=== PATIENT | female | born 1970 | race Caucasian/White ===

== ENCOUNTER 2019-07-19 19:01 | Emergency (ER) | payer MEDICAID ==
[~2019-07-19] VITALS: Ht 170.2 cm; Wt 145.5 kg
[~2019-07-19 19:01] MED LIST: CLIN-96 PO; CLOT15CR73 TP; CYCL-1 PO; IBUP-1984 PO; METF500T PO; [UNRECOGNIZED DRUG - OTHER]
[2019-07-19 19:05] VITALS: BP 159/102
== END 2019-07-19 19:41 | disposition home or self-care (01) ==
LOC: ER 19:02
DX: Q66.89 Other specified congenital deformities of feet (principal); R62.50 Unspecified lack of expected normal physiological development in childhood; F31.9 Bipolar disorder, unspecified; Z60.2 Problems related to living alone; Z59.0 Homelessness; Z79.899 Other long term (current) drug therapy
CPT/HCPCS: 99281

== ENCOUNTER 2020-01-27 17:01 | Emergency (ER) | payer MEDICAID ==
[~2020-01-27] VITALS: Ht 167.6 cm; Wt 134.1 kg
[~2020-01-27 17:01] MED LIST changes: -CLIN-96 PO; +CLIN-97 PO
[2020-01-27] MEDS ORDERED: ketorolac tromethamine 15mg/ml inj. IM ONE (18:05)
[2020-01-27 18:36] LABS: BASOPHILS # (AUTO) 0.1 X10'3 (0-0.2); BASOPHILS % (AUTO) 0.9 % (0-1); EOSINOPHILS # (AUTO) 0.5 X10'3 (0-0.9); EOSINOPHILS % (AUTO) 3.3 % (0-6); HEMATOCRIT 44.7 % (35.0-45.0); HEMOGLOBIN 14.7 g/dl (12.0-16.0); LYMPHOCYTES # (AUTO) 2.8 X10'3 (1.1-4.8); LYMPHOCYTES % (AUTO) 20.1 % (21-51); MEAN CORPUSCULAR HEMOGLOBIN 28.9 PG (27.0-31.0); MEAN CORPUSCULAR HGB CONC 32.8 g/dL (33.0-36.5); MEAN CORPUSCULAR VOLUME 88.2 FL (78-98); MEAN PLATELET VOLUME 8.1 FL (7.4-10.4); MONOCYTES # (AUTO) 1.3 X10'3 (0-0.9); MONOCYTES % (AUTO) 9.1 % (2-12); NEUTROPHILS # (AUTO) 9.4 X10'3 (1.8-7.7); NEUTROPHILS % (AUTO) 66.6 % (42-75); PLATELET COUNT 253 X10'3 (140-440); RED BLOOD COUNT 5.07 X10'6 (4.20-5.60); RED CELL DISTRIBUTION WIDTH 13.5 % (11.5-14.5); WHITE BLOOD COUNT 14.1 X10'3 (4.5-11.0)
[2020-01-27 18:51] LABS: ALANINE AMINOTRANSFERASE 22 U/L (12-78); ALBUMIN 3.7 G/DL (3.4-5.0); ALBUMIN/GLOBULIN RATIO 1.1 (1.1-1.5); ALKALINE PHOSPHATASE 116 IU/L (46-116); ANION GAP 6 (8-16); ASPARTATE AMINO TRANSFERASE 18 U/L (10-37); BILIRUBIN,TOTAL 0.2 MG/DL (0.1-1.0); BLOOD UREA NITROGEN 9 MG/DL (7-18); BUN/CREATININE RATIO 8.6 (6.6-38.0); CHLORIDE 106 MMOL/L (99-107); CREATININE 1.05 MG/DL (0.40-0.90); ETHANOL < 0.010 GM/DL (0.0-0.010); GLUCOSE 83 MG/DL (70-104); POTASSIUM 3.8 MMOL/L (3.5-5.1); SODIUM 140 MMOL/L (135-145); TOTAL PROTEIN 7.1 G/DL (6.4-8.2); eGFR 56 ML/MIN
--- NOTE | 2020-01-27 21:13 | NUR ---
Pt told PCT that she would like to speak to the nurse and that she was "about to leave AMA." Pt upset because nobody has brought her yogurt as requested. Pt informed that somebody would bring her yogurt when time allows, and is asked to be patient until then. Pt also informed that she is under a 1799 hold for statements of suicidal intent and that leaving AMA is not an option. Elopement band requested from the [facility] PCT.
[2020-01-27 22:34] LABS: URINE HCG NEGATIVE (NEG)
[2020-01-27 22:50] LABS: URINE AMPHETAMINE SCREEN NEGATIVE (Neg); URINE BARBITUATE SCREEN NEGATIVE (Neg); URINE BENZODIAZEPINES SCREEN NEGATIVE (Neg); URINE CANNABINOID SCREEN NEGATIVE (Neg); URINE COCAINE SCREEN NEGATIVE (Neg); URINE METHADONE SCREEN NEGATIVE (Neg); URINE OPIATE SCREEN NEGATIVE (Neg); URINE PHENCYCLIDINE SCREEN NEGATIVE (Neg)
--- NOTE | 2020-01-28 03:17 | NUR ---
PT RESTING QUIETLY ON HER BACK AT THIS TIME RESPIRATIONS EVEN AND UNLABORED.
--- NOTE | 2020-01-28 06:54 | NUR ---
PT. SLEEPING IN [place]. RR IS EVEN AND UNLABORED, UNDER NO DISTERSS. WILL CONTINUE TO MONITOR.
--- NOTE | 2020-01-28 07:21 | NUR ---
PT. STATES SHE USES [facility] IN [place], WILL CALL WHEN THEY OPEN AT 10AM TO GET A LIST OF MEDICATIONS.
[2020-01-28] MEDS ORDERED: ibuprofen tablet 400 MG TABLET PO ONE (07:25)
[2020-01-28 07:31] VITALS: BP 125/69
--- NOTE | 2020-01-28 09:38 | NUR ---
pt. is sitting in bed quietly. is in no distress, will continue to monitor.
[2020-01-28] MEDS ORDERED: LITH150C8 PO (11:29)
[2020-01-28] MEDS ORDERED: HALO5TAB PO (11:29)
[2020-01-28] MEDS ORDERED: OXYB15TA19 PO (11:29)
[2020-01-28] MEDS ORDERED: OXCA600T9 PO (11:29)
[2020-01-28] MEDS ORDERED: MULT-1085 PO (11:29)
[2020-01-28] MEDS ORDERED: TRAZ150T78 PO (11:29)
[2020-01-28] MEDS ORDERED: LURA80TA3 PO (11:29)
[2020-01-28] MEDS ORDERED: ESCI5TAB PO (11:29)
[2020-01-28] MEDS ORDERED: LORA-269 PO (11:29)
--- NOTE | 2020-01-28 11:47 | NUR ---
PT LAYING SUPINE, RESPORATIONS EVEN AND UNLABORED, NO DISTRESS NOTED AT THIS TIME. PT REQUESTIONS "IWANT TO GET OUT OF HERE".
[2020-01-28] MEDS ORDERED: LORazepam 1 MG tablet PO PRN (12:10)
--- NOTE | 2020-01-28 12:50 | NUR ---
Pt is currently laying supine while speaking to the [facility] evaulator. RR are observed to be even and unlabored. No distress observed at this time.
--- NOTE | 2020-01-28 13:17 | NUR ---
[facility]ITALGr[facility]: [facility]
--- NOTE | 2020-01-28 13:48 | NUR ---
Pt is currently getting dressed in preparation to be discharged. Belongings has been returned to patient. Patient awaiting arrival of person to pickup once discharged. RR are unlabored and even. No distress observed. Will continue to monitor.
[2020-01-28] MEDS ORDERED: lithium carbonate 150mg capsule PO SCH (20:00)
[2020-01-28] MEDS ORDERED: oxcarbazepine 150mg tablet PO SCH (20:00)
[2020-01-28] MEDS ORDERED: traZODone 150mg tablet PO SCH (21:00)
[2020-01-28] MEDS ORDERED: lurasidone 20mg tablet PO SCH (21:00)
[2020-01-29] MEDS ORDERED: multivitamins, therapeutics tablet PO SCH (08:00)
[2020-01-29] MEDS ORDERED: ESCITALOPRAM OXALATE 5 MG TABLET PO SCH (08:00)
[2020-01-29] MEDS ORDERED: oxybutynin 5mg tablet PO SCH (08:00)
[2020-01-29] MEDS ORDERED: haloperidol 5mg tablet PO SCH (08:00)
== END 2020-01-28 14:32 | disposition home or self-care (01) ==
LOC: ER 17:01
DX: R45.851 Suicidal ideations (principal); F41.9 Anxiety disorder, unspecified; F32.9 Major depressive disorder, single episode, unspecified; F17.200 Nicotine dependence, unspecified, uncomplicated; Z60.2 Problems related to living alone; Z59.0 Homelessness; Z79.899 Other long term (current) drug therapy
CPT/HCPCS: 36415; 80053; 80178; 80305; 80320; 81025; 84443; 85025; 96372; 99283; J1885